=== PATIENT | male | born 1970 | race Caucasian/White ===

== ENCOUNTER 2024-04-17 23:01 | Emergency (ER) | payer MEDICAID, SELFPAY ==
[2024-04-17] VITALS (11 sets, daily range): BP systolic 135–207; BP diastolic 95–135; PULSE 80–96; RESP 16–23; O2SAT 92–96
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
[2024-04-17 23:16] LABS: Abs Immature Grans 0.09 10^3/uL (0.0-0.06); Absolute Basophil Count 0.12 10^3/uL (0.0-0.2); Absolute Eosinophil Count 0.29 10^3/uL (0.0-0.7); Absolute Lymphocyte Count 2.19 10^3/uL (1.2-3.4); Absolute Monocyte Count 0.87 10^3/uL (0.1-0.8); Basophils % 1.1 %; Eosinophils % 2.7 %; HCT 48.7 % (40.0-50.0); HGB 16.3 g/dL (13.5-17.5); Immature Grans % 0.8 %; Lymphocytes % 20.1 %; MCH 34.6 pg (27.0-33.0); MCHC 33.5 % (32.0-36.0); MCV 103 fL (80-95); MPV 10.1 fL (8.0-11.0); Neutrophils % 67.3 %; Platelet Count 187 10^3/uL (130-400); RBC 4.71 10^6/uL (4.36-5.78); RDW 13.2 % (11.8-14.1); RDW-SD 51.1 fL; WBC 10.91 10^3/uL (4.4-10.8)
[2024-04-17 23:18] LABS: Absolute Neutrophil Count 7.34 10^3/uL (1.2-6.7)
[2024-04-17] MEDS: Ondansetron 4 MG/2 ML VIAL (23:26)
[2024-04-17 23:31] LABS: Prothrombin Time 10.1 sec (9.1-11.1)
[2024-04-17 23:34] LABS: ALT 136 U/L (16-63); AST 129 U/L (15-37); Alkaline Phosphatase 106 U/L (46-116); Anion Gap 10.9 mmol/L (3-11); BUN 11 mg/dL (7-18); Bilirubin, Total 0.47 mg/dL (0.2-1.0); CO2 29.1 mmol/L (21.0-32.0); Chloride 103 mmol/L (98-107); Estimated GFR 88.88 (mL/min/1.73m2); Glucose 117 mg/dL (74-106); Potassium 3.9 mmol/L (3.5-5.1); Sodium 143 mmol/L (136-145)
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
[2024-04-17] MEDS: Lactated Ringers 1,000 ML 1000 ML IV (23:49)
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
[2024-04-18] VITALS (12 sets, daily range): BP systolic 142–169; BP diastolic 90–149; PULSE 82–89; RESP 15–26; O2SAT 90–96
--- NOTE | 2024-04-18 00:06 | NUR.NOTE ---
Late entry, there was a delay in obtaining patient's EKG due to CT Scan being done, Dr. Francois asked we hold off until he said he was ready for the EKG. Patient returned from CT Scan, patient was agitated, restless Dr. Francois said to hold off doing EKG until patient settled down.
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
[2024-04-18] MEDS: Normal Saline - Diluent 50 ML VIAL IJ (00:14)
[2024-04-18] MEDS: Omnipaque 350 MG/ML 100 ML BTL IJ (00:15)
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
[2024-04-18] MEDS: VANCOMYCIN 1,500 MG in Normal Saline 500 ML 250 MG IVPB (00:19)
[2024-04-18 00:23] LABS: Bilirubin Negative (Negative); Blood Moderate (Negative); Clarity Sl Cloudy (Clear); Glucose Negative (Negative); Ketones Negative (Negative); Leukocyte Esterase Negative (Negative); Nitrite Negative (Negative); Urobilinogen 0.2 mg/dL (Up to 0.2)
[2024-04-18 00:27] LABS: Bacteria Negative HPF (Negative); C & S Indicated? No; Casts Negative LPF (Negative); Crystals Negative HPF (Negative); Epithelial Cells Negative HPF (Negative); Mucus Negative (Negative); Other Cells Rare Renal (Negative)
[2024-04-18] MEDS: fentaNYL 100 MCG/2 ML VIAL (00:27)
[2024-04-18] MEDS: cefTAZidime 2,000 MG in Normal Saline 100 ML 200 MG IVPB (00:31)
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
--- NOTE | 2024-04-18 00:45 | DI.RAD_ITS ---
Exam(s) XR PORTABLE CHEST AP EXAM: XR PORTABLE CHEST AP CLINICAL HISTORY: post intubation. TECHNIQUE: 2D digital imaging was performed. COMPARISON: CR,XR XR PORTABLE CHEST AP from 04/17/[address] CHEST/ABD/PEL W from 04/17/2024 FINDINGS: Single AP portable view. Patient is now intubated. Distal tip of the endotracheal tube is 5 cm above the suzie. Heart size is upper normal. The mediastinum is not widened. There is increasing infiltrate in the left lung. Milder infiltrate in the right lung. Slight blunti ng of left costophrenic angle may indicate some pleural fluid, realizing that there was no pleural fl uid at this location on yesterday's CT scan. Multiple nonacute appearing right rib fractures again noted.zz please note that CT scan from yesterda y revealed sternal fracture as well as acute fracture of the right 1st rib which is more difficult to appreciate on plain films. IMPRESSION: Significant increase in amount of lung infiltrates, particularly on the left side. Patient is intuba vipin. Osseous findings as above. DATA REPOSITORY: RADIATION DOSE DELIVERED:
[2024-04-18] MEDS: Etomidate 20 MG/10 ML VIAL IVP (00:48)
[2024-04-18] MEDS: Rocuronium 50 MG/5 ML SYR 100 MG IVP (00:48)
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
== END 2024-04-18 01:14 | disposition short-term general hospital (02) ==
LOC: ER 04-18 01:00
PROVIDERS: Emergency Provider Emergency Medicine
DX: Z23 Encounter for immunization; S22.20XA Unspecified fracture of sternum, initial encounter for closed fracture; V40.5XXA Car driver injured in collision with pedestrian or animal in traffic accident, initial encounter; S22.31XA Fracture of one rib, right side, initial encounter for closed fracture; S05.31XA Ocular laceration without prolapse or loss of intraocular tissue, right eye, initial encounter; S27.322A Contusion of lung, bilateral, initial encounter; S11.91XA Laceration without foreign body of unspecified part of neck, initial encounter; S01.411A Laceration without foreign body of right cheek and temporomandibular area, initial encounter; Z98.1 Arthrodesis status; Z78.1 Physical restraint status
CPT/HCPCS: 00123; 31500; 74177; 80053; 86850; 86900; 86901; 90471; 90715; 93005; 96361; 96365; 99291; 70450; 71045; 71260; 72125; 72170; 81003; 81015; 85025; 85610; 85730; 93010; J0713; J2405; J3010; J3370; J3490